=== PATIENT | female | born 1945 | race Caucasian/White ===

== ENCOUNTER 2019-05-06 17:33 | Inpatient (IN) | payer MEDICARE, OTHER ==
[2019-05-06 18:08] LABS: ADD MAN DIFF? NO
[2019-05-06 18:09] LABS: WHITE BLOOD COUNT 8.6 10^3/ul (4.8-10.8)
[2019-05-06 18:09] LABS: BASOPHILS % 0.2 % (0.0-2.0); EOSINOPHILS % 0.5 % (0.0-7.0); HEMATOCRIT 41.7 % (37.0-47.0); HEMOGLOBIN 14.2 g/dl (12.0-16.0); LYMPHOCYTES # 1.7 10^3/ul (0.8-2.9); LYMPHOCYTES % 19.6 % (15.0-51.0); MEAN CORPUSCULAR HGB CONC 34.1 g/dl (32.0-37.0); MEAN PLATELET VOLUME 9.7 fl (7.4-10.4); MONOCYTE # 0.6 10^3/ul (0.3-0.9); NEUTROPHIL # 6.2 10^3/ul (1.6-7.5); NEUTROPHILS % 72.2 % (39.0-77.0); PLATELET COUNT 266 10^3/UL (140-415); RED BLOOD COUNT 4.74 10^6/ul (4.20-5.40); RED CELL DISTRIBUTION WIDTH 12.2 % (11.5-14.5)
[2019-05-06 18:22] LABS: URINE BLOOD (Dip) POC 1+ (NEGATIVE); URINE KETONES (Dip) POC Negative (NEGATIVE); URINE LEUKOCYTE EST (Dip) POC Negative (NEGATIVE); URINE NITRITE (Dip) POC Negative (NEGATIVE); URINE TOTAL PROTEIN POC 2+ (NEGATIVE)
[2019-05-06 18:26] LABS: ANION GAP 10 (5-13); BLOOD UREA NITROGEN 14 mg/dl (7-20); CALCIUM 9.5 mg/dl (8.4-10.2); CARBON DIOXIDE 24 mmol/L (21-31); CHLORIDE 105 mmol/L (97-110); CREATININE 0.84 mg/dl (0.44-1.00); GLUCOSE 295 mg/dl (70-220); POTASSIUM 3.7 mmol/L (3.5-5.1); SODIUM 139 mmol/L (135-144)
[2019-05-06 18:29] LABS: INR 0.91; PROTIME 12.4 Sec (11.9-14.9)
[2019-05-06 18:30] LABS: PARTIAL THROMBOPLASTIN TIME 27.5 Sec (23.0-35.0)
[2019-05-06] MEDS ORDERED: ACETAMINOPHEN 500 MG TAB (18:34)
[2019-05-06] MEDS: ACETAMINOPHEN 500 MG TAB PO (18:36)
[2019-05-06] MEDS ORDERED: ONDANSETRON 4 MG INJ IV ×2 (21:00→22:00)
[2019-05-06] MEDS ORDERED: ACETAMINOPHEN 325 MG TAB PO (21:00)
[2019-05-06] MEDS: hydrALAzine 20 MG INJ IV (21:25)
[2019-05-06] MEDS ORDERED: GLUCOSE GEL 15 GRAM TUBE BUCCAL (21:30)
[2019-05-06] MEDS ORDERED: GLUCOSE GEL 15 GRAM TUBE PO ×2 (21:30)
[2019-05-06] MEDS ORDERED: DEXTROSE 50% 50 ML SYRINGE IV ×2 (21:30)
[2019-05-06] MEDS ORDERED: GLUCAGON 1 MG INJ IM (21:30)
[2019-05-06] MEDS: morphine 2 MG INJ IV (21:57)
[2019-05-06] MEDS ORDERED: NACL 0.9% 3 ML SYG IV (22:00)
[2019-05-06] MEDS: DOCUSATE SODIUM 100 MG CAP PO (23:12)
[2019-05-06] MEDS: INSULIN GLARGINE [LANTus] (100 UNITS/ML) SYG SC (23:14)
[2019-05-06] MEDS: SOD CHLORIDE 0.9% 100 ML (23:17)
[2019-05-06] MEDS: IOHEXOL 300MG/ML 150 ML BTL (23:17)
[2019-05-07] MEDS: HYDROCODONE/APAP (5/325) TAB PO (00:27)
[2019-05-07 05:06] LABS: ADD MAN DIFF? NO
[2019-05-07 05:11] LABS: BASOPHILS % 0.3 % (0.0-2.0); EOSINOPHILS # 0.1 10^3/ul (0.0-0.5); EOSINOPHILS % 0.6 % (0.0-7.0); HEMATOCRIT 38.6 % (37.0-47.0); HEMOGLOBIN 12.9 g/dl (12.0-16.0); LYMPHOCYTES # 1.9 10^3/ul (0.8-2.9); LYMPHOCYTES % 24.3 % (15.0-51.0); MEAN CORPUSCULAR HEMOGLOBIN 29.1 pg (29.0-33.0); MEAN CORPUSCULAR HGB CONC 33.4 g/dl (32.0-37.0); MEAN CORPUSCULAR VOLUME 87.1 fl (82.0-101.0); MEAN PLATELET VOLUME 9.5 fl (7.4-10.4); MONOCYTE # 0.6 10^3/ul (0.3-0.9); MONOCYTES % 7.6 % (0.0-11.0); NEUTROPHIL # 5.3 10^3/ul (1.6-7.5); NEUTROPHILS % 66.8 % (39.0-77.0); PLATELET COUNT 246 10^3/UL (140-415); RED BLOOD COUNT 4.43 10^6/ul (4.20-5.40); RED CELL DISTRIBUTION WIDTH 12.4 % (11.5-14.5)
[2019-05-07 05:34] LABS: HEMOGLOBIN A1C 8.3 % (0-5.9)
[2019-05-07 05:59] LABS: ALANINE AMINOTRANSFERASE 21 IU/L (13-69); ALBUMIN 3.6 g/dl (3.3-4.9); ALBUMIN/GLOBULIN RATIO 1.28; ALKALINE PHOSPHATASE 78 IU/L (42-121); ANION GAP 4 (5-13); ASPARTATE AMINO TRANSFERASE 19 IU/L (15-46); BILIRUBIN,INDIRECT 0.4 mg/dl (0-1.1); BILIRUBIN,TOTAL 0.4 mg/dl (0.2-1.3); BLOOD UREA NITROGEN 11 mg/dl (7-20); CALCIUM 9.2 mg/dl (8.4-10.2); CARBON DIOXIDE 27 mmol/L (21-31); CHLORIDE 106 mmol/L (97-110); CHOL/HDL RATIO 4.9 RATIO; CHOLESTEROL 209 mg/dl (100-200); CREATININE 0.72 mg/dl (0.44-1.00); GLUCOSE 182 mg/dl (70-220); HDL CHOLESTEROL 42 mg/dl (33-92); LDL CHOLESTEROL,CALCULATED 134 mg/dl; MAGNESIUM 1.8 mg/dl (1.7-2.5); POTASSIUM 3.3 mmol/L (3.5-5.1); SODIUM 137 mmol/L (135-144); TOTAL PROTEIN 6.4 g/dl (6.1-8.1); TRIGLYCERIDES 167 mg/dl (0-149)
[2019-05-07] MEDS: POTASSIUM CHLORIDE (SR) 20 MEQ TAB PO (07:03)
[2019-05-07] MEDS: INSULIN GLARGINE [LANTus] (100 UNITS/ML) SYG SC ×2 (08:17→20:48)
[2019-05-07] MEDS: FERROUS SULFATE (EC) 325 MG TAB PO ×2 (08:18→20:40)
[2019-05-07] MEDS: PANTOPRAZOLE (EC) 40 MG TAB PO (08:18)
[2019-05-07] MEDS: INSULIN ASPART [NOVOLOG] 3 ML PEN SC ×4 (08:18→20:49)
[2019-05-07] MEDS: morphine 2 MG INJ IV ×2 (08:21→15:44)
[2019-05-07] MEDS: METOPROLOL (XL) 50 MG TAB PO (08:22)
[2019-05-07] MEDS: hydrALAzine 20 MG INJ IV ×2 (08:22→13:24)
[2019-05-07 08:53] LABS: THYROID STIMULATING HORMONE 0.755 MIU/L (0.465-4.680)
[2019-05-07] MEDS: DOCUSATE SODIUM 100 MG CAP PO ×2 (12:42→20:40)
[2019-05-07] MEDS: ACETAMINOPHEN 325 MG TAB PO (14:48)
[2019-05-07] MEDS: LOSARTAN 25 MG TAB PO (18:19)
[2019-05-07] MEDS: ASPIRIN 81 MG TAB PO (20:40)
[2019-05-07] MEDS: ATORVASTATIN 40 MG TAB PO (20:40)
[2019-05-07] MEDS: CHLORHEXIDINE GLUCONATE 15 ML UD CUP MT (20:41)
[2019-05-07] MEDS ORDERED: LOSARTAN 25 MG TAB NGT (21:00)
[2019-05-08] MEDS ORDERED: LOSARTAN 25 MG TAB PO
[2019-05-08] MEDS: LOSARTAN 25 MG TAB PO ×2 (00:45→08:28)
[2019-05-08] MEDS: ACCU-CHEK XX (02:00)
[2019-05-08] MEDS: INSULIN GLARGINE [LANTus] (100 UNITS/ML) SYG SC ×2 (08:15→20:54)
[2019-05-08] MEDS: INSULIN ASPART [NOVOLOG] 3 ML PEN SC ×4 (08:15→20:54)
[2019-05-08] MEDS: CHLORHEXIDINE GLUCONATE 15 ML UD CUP MT ×2 (08:28→20:43)
[2019-05-08] MEDS: FERROUS SULFATE (EC) 325 MG TAB PO ×2 (08:28→20:43)
[2019-05-08] MEDS: PANTOPRAZOLE (EC) 40 MG TAB PO (08:28)
[2019-05-08] MEDS: ASPIRIN 81 MG TAB PO (08:28)
[2019-05-08] MEDS: METOPROLOL (XL) 50 MG TAB PO (08:29)
[2019-05-08] MEDS: DOCUSATE SODIUM 100 MG CAP PO ×2 (08:31→22:45)
[2019-05-08] MEDS: BISACODYL (EC) 5 MG TAB PO (11:24)
[2019-05-08] MEDS: hydrALAzine 20 MG INJ IV ×3 (12:18→20:58)
[2019-05-08] MEDS: BISACODYL 10 MG SUPP PR (16:10)
[2019-05-08 16:26] LABS: TROPONIN-I < 0.012 ng/ml (0.000-0.120)
[2019-05-08 16:58] LABS: ERYTHROCYTE SEDIMENTATION RATE 57 mm/Hr (0-30)
[2019-05-08] MEDS: ATORVASTATIN 40 MG TAB PO (20:43)
[2019-05-08] MEDS: LOSARTAN 50 MG TAB PO (20:43)
[2019-05-09 01:57] LABS: TROPONIN-I 0.027 ng/ml (0.000-0.120)
[2019-05-09] MEDS: ACCU-CHEK XX (02:09)
[2019-05-09] MEDS: INSULIN ASPART [NOVOLOG] 3 ML PEN SC ×4 (07:52→20:38)
[2019-05-09] MEDS: FERROUS SULFATE (EC) 325 MG TAB PO ×2 (09:17→20:25)
[2019-05-09] MEDS: ASPIRIN 81 MG TAB PO (09:17)
[2019-05-09] MEDS: PANTOPRAZOLE (EC) 40 MG TAB PO (09:17)
[2019-05-09] MEDS: DOCUSATE SODIUM 100 MG CAP PO ×2 (09:18→20:50)
[2019-05-09] MEDS: LOSARTAN 50 MG TAB PO ×2 (09:18→20:29)
[2019-05-09] MEDS: AMLODIPINE 5 MG TAB PO ×2 (09:19→20:28)
[2019-05-09] MEDS: METOPROLOL (XL) 50 MG TAB PO (09:19)
[2019-05-09] MEDS: INSULIN GLARGINE [LANTus] (100 UNITS/ML) SYG SC ×2 (09:27→20:49)
[2019-05-09] MEDS: CHLORHEXIDINE GLUCONATE 15 ML UD CUP MT ×2 (09:36→20:26)
[2019-05-09] MEDS: ACETAMINOPHEN 325 MG TAB PO (10:45)
[2019-05-09 16:15] LABS: RAPID PLASMA REAGIN NONREACTIVE (NR)
[2019-05-09] MEDS: ATORVASTATIN 40 MG TAB PO (20:25)
[2019-05-09] MEDS: hydrALAzine 20 MG INJ IV (20:43)
[2019-05-09] MEDS: NA PHOSPHATE/BIPHOS 133 ML ENEMA PR (20:50)
[2019-05-09 23:31] LABS: AMPHETAMINE/METHAMPHETAMINE Negative (NEGATIVE); BARBITURATES Negative (NEGATIVE); BENZODIAZEPINES Negative (NEGATIVE); CANNABINOIDS Negative (NEGATIVE); COCAINE Negative (NEGATIVE); OPIATES Negative (NEGATIVE)
[2019-05-10] MEDS: ACCU-CHEK XX (01:40)
[2019-05-10] MEDS: SOD CHLORIDE 0.9% 100 ML (07:32)
[2019-05-10] MEDS: IOHEXOL 100 ML (07:32)
[2019-05-10] MEDS: INSULIN ASPART [NOVOLOG] 3 ML PEN SC ×4 (07:32→20:15)
[2019-05-10] MEDS: ALPRAZOLAM 0.25 MG TAB PO (07:32)
[2019-05-10] MEDS: METOPROLOL (XL) 50 MG TAB PO (09:00)
[2019-05-10] MEDS: ACETAMINOPHEN 325 MG TAB PO (09:10)
[2019-05-10] MEDS: AMLODIPINE 5 MG TAB PO ×2 (09:10→20:05)
[2019-05-10] MEDS: DOCUSATE SODIUM 100 MG CAP PO ×2 (09:11→22:43)
[2019-05-10] MEDS: ASPIRIN 81 MG TAB PO (09:11)
[2019-05-10] MEDS: PANTOPRAZOLE (EC) 40 MG TAB PO (09:11)
[2019-05-10] MEDS: CHLORHEXIDINE GLUCONATE 15 ML UD CUP MT ×2 (09:11→20:05)
[2019-05-10] MEDS: FERROUS SULFATE (EC) 325 MG TAB PO ×2 (09:11→20:05)
[2019-05-10] MEDS: LOSARTAN 50 MG TAB PO ×2 (09:11→20:06)
[2019-05-10] MEDS: ESCITALOPRAM 10 MG TAB PO (12:00)
[2019-05-10] MEDS: INSULIN GLARGINE [LANTus] (100 UNITS/ML) SYG SC ×2 (12:16→20:16)
[2019-05-10] MEDS: hydrALAzine 20 MG INJ IV ×4 (15:14→22:08)
[2019-05-10] MEDS: ATORVASTATIN 40 MG TAB PO (20:06)
[2019-05-11] MEDS: ACCU-CHEK XX (02:30)
[2019-05-11] MEDS: INSULIN ASPART [NOVOLOG] 3 ML PEN SC ×4 (08:00→21:54)
[2019-05-11] MEDS: ESCITALOPRAM 10 MG TAB PO (08:02)
[2019-05-11] MEDS: CHLORHEXIDINE GLUCONATE 15 ML UD CUP MT ×2 (08:35→20:30)
[2019-05-11] MEDS: HYDROCHLOROTHIAZIDE 25 MG TAB PO (08:35)
[2019-05-11] MEDS: FERROUS SULFATE (EC) 325 MG TAB PO ×2 (08:35→20:30)
[2019-05-11] MEDS: AMLODIPINE 5 MG TAB PO ×2 (08:35→20:32)
[2019-05-11] MEDS: LOSARTAN 50 MG TAB PO ×2 (08:35→20:31)
[2019-05-11] MEDS: PANTOPRAZOLE (EC) 40 MG TAB PO (08:35)
[2019-05-11] MEDS: ASPIRIN 81 MG TAB PO (08:36)
[2019-05-11] MEDS: METOPROLOL (XL) 25 MG TAB PO (08:57)
[2019-05-11] MEDS: INSULIN GLARGINE [LANTus] (100 UNITS/ML) SYG SC ×2 (08:57→21:56)
[2019-05-11] MEDS: DOCUSATE SODIUM 100 MG CAP PO ×2 (09:41→22:00)
[2019-05-11] MEDS: hydrALAzine 20 MG INJ IV (09:41)
[2019-05-11] MEDS: POTASSIUM CHLORIDE (SR) 20 MEQ TAB PO (12:06)
[2019-05-11] MEDS ORDERED: LACTULOSE 30ML CUP PO (20:00)
[2019-05-11] MEDS: ATORVASTATIN 40 MG TAB PO (20:30)
[2019-05-11] MEDS: NA PHOSPHATE/BIPHOS 133 ML ENEMA PR (20:32)
[2019-05-12] MEDS: ACCU-CHEK XX (02:00)
[2019-05-12] MEDS: FERROUS SULFATE (EC) 325 MG TAB PO (08:28)
[2019-05-12] MEDS: LOSARTAN 50 MG TAB PO (08:29)
[2019-05-12] MEDS: HYDROCHLOROTHIAZIDE 25 MG TAB PO (08:29)
[2019-05-12] MEDS: CHLORHEXIDINE GLUCONATE 15 ML UD CUP MT (08:29)
[2019-05-12] MEDS: ASPIRIN 81 MG TAB PO (08:29)
[2019-05-12] MEDS: PANTOPRAZOLE (EC) 40 MG TAB PO (08:29)
[2019-05-12] MEDS: AMLODIPINE 5 MG TAB PO (08:29)
[2019-05-12] MEDS: INSULIN ASPART [NOVOLOG] 3 ML PEN SC ×2 (08:32→12:26)
[2019-05-12] MEDS: INSULIN GLARGINE [LANTus] (100 UNITS/ML) SYG SC (08:33)
[2019-05-12] MEDS: DOCUSATE SODIUM 100 MG CAP PO (10:00)
== END 2019-05-12 17:00 | DRG 65 ==
LOC: E/R 17:33 → 6WM 05-07 21:30 → 2NE 20:58
PROVIDERS: Internal Medicine
DX: I63.9 Cerebral infarction, unspecified (principal); G81.94 Hemiplegia, unspecified affecting left nondominant side; R13.10 Dysphagia, unspecified; I10 Essential (primary) hypertension; I25.10 Atherosclerotic heart disease of native coronary artery without angina pectoris; E78.5 Hyperlipidemia, unspecified; R29.6 Repeated falls; M48.061 Spinal stenosis, lumbar region without neurogenic claudication; M48.04 Spinal stenosis, thoracic region; E66.9 Obesity, unspecified; R00.1 Bradycardia, unspecified; F32.9 Major depressive disorder, single episode, unspecified; F41.9 Anxiety disorder, unspecified; E87.6 Hypokalemia; Z79.4 Long term (current) use of insulin; Z95.5 Presence of coronary angioplasty implant and graft
CPT/HCPCS: 36415; 70496; 70498; 70551; 71045; 71275; 72128; 72131; 72141; 72146; 72148; 74230; 80048; 80053; 80061; 80307; 81003; 82962; 83036; 83735; 84443; 84484; 85025; 85610; 85651; 85730; 86592; 92507; 92523; 92526; 92610; 92611; 93005; 93306; 93308; 97110; 97162; 97167; 97530; 97535; 99285-25